=== PATIENT | male | born 1955 | race Caucasian/White ===

== ENCOUNTER 2019-04-26 10:45 | Emergency (ER) | payer MEDICARE, MEDICAID ==
[2019-04-26 11:31] VITALS: BP 123/74
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
== END 2019-04-26 11:55 | disposition home or self-care (01) ==
LOC: UCCORT 10:45
DX: B02.9 Zoster without complications (principal); E78.5 Hyperlipidemia, unspecified; Z87.891 Personal history of nicotine dependence
CPT/HCPCS: 99212; G0463